=== PATIENT | female | born 2000 | race Caucasian/White ===

== ENCOUNTER 2023-09-12 08:49 | Emergency (ER) | payer OTHER ==
[~2023-09-12] VITALS: Ht 167.6 cm; Wt 72.6 kg
[2023-09-12 09:18] VITALS: BP_SYST 131; PULSE 94; RESP 20; TEMP 97.1; O2SAT 99
[2023-09-12 09:59] LABS: BASOPHILS % (AUTO) 0.5 % (0.0-2.0); EOSINOPHILS # (AUTO) 0.1 K/uL (0.0-0.4); EOSINOPHILS % (AUTO) 1.2 % (0.0-4.0); HEMATOCRIT 46.9 % (36-48); HEMOGLOBIN 15.8 g/dL (12.0-16.0); LYMPHOCYTES # (AUTO) 1.5 K/uL (1.0-5.5); LYMPHOCYTES % (AUTO) 19.6 % (20.5-51.5); MEAN CORPUSCULAR HEMOGLOBIN 30 pg (27-31); MEAN CORPUSCULAR HGB CONC 34 % (32-36); MEAN CORPUSCULAR VOLUME 89 fL (79.0-98.0); MONOCYTES # (AUTO) 0.3 K/uL (0.0-1.0); MONOCYTES % (AUTO) 4.4 % (1.7-9.3); NEUTROPHILS # (AUTO) 5.5 K/uL (1.8-7.7); NEUTROPHILS % (AUTO) 74.3 % (40.0-70.0); PLATELET COUNT (AUTO) 280 K/uL (130-430); RED BLOOD CELL COUNT(AUTO) 5.26 MIL/uL (4.2-6.2); RED CELL DISTRIBUTION WIDTH 13.2 % (9.0-15.0); WHITE BLOOD COUNT (AUTO) 7.4 K/uL (4.8-10.8)
[2023-09-12 10:11] LABS: BILIRUBIN,URINE NEGATIVE (NEGATIVE); BLOOD, URINE NEGATIVE (NEGATIVE); CLARITY/URINE CLEAR (CLEAR); COLOR,URINE YELLOW (YELLOW); GLUCOSE,URINE NEGATIVE (NEGATIVE); KETONES,URINE NEGATIVE (NEGATIVE); LEUKOCYTE ESTERASE ,URINE NEGATIVE (NEGATIVE); NITRITE, URINE NEGATIVE (NEGATIVE); PROTEIN URINE NEGATIVE (NEGATIVE); UROBILINOGEN,URINE 0.2 (0.2-1.0)
[2023-09-12 10:13] LABS: CALCIUM 9.4 mg/dL (8.4-11.0); CREATININE 0.78 mg/dL (0.55-1.30); POTASSIUM 4.1 mmol/L (3.5-5.1)
[2023-09-12] MEDS ORDERED: AUG875 PO (11:37)
[2023-09-12 12:31] VITALS: BP_SYST 131; PULSE 94; RESP 20; TEMP 97.1; O2SAT 99
== END 2023-09-12 12:53 | disposition home or self-care (01) ==
LOC: SED 08:49
DX: I88.0 Nonspecific mesenteric lymphadenitis (principal); R10.31 Right lower quadrant pain; Z79.899 Other long term (current) drug therapy
CPT/HCPCS: 36415; 76376; 80048; 81001; 81003; 81025; 85025; 99284

== ENCOUNTER 2023-10-02 04:23 | Emergency (ER) | payer OTHER ==
[~2023-10-02] VITALS: Ht 165.1 cm; Wt 77.1 kg
[~2023-10-02 04:23] MED LIST: AUG875 PO
[2023-10-02 04:29] VITALS: BP_SYST 114; PULSE 78; RESP 20; TEMP 97.9; O2SAT 98
[2023-10-02] MEDS: KETOROLAC TROMETHAMINE 30 MG VIAL IVP ONE (04:45)
[2023-10-02 05:29] LABS: BILIRUBIN,URINE NEGATIVE (NEGATIVE); CLARITY/URINE CLEAR (CLEAR); COLOR,URINE YELLOW (YELLOW); GLUCOSE,URINE NEGATIVE (NEGATIVE); KETONES,URINE NEGATIVE (NEGATIVE); NITRITE, URINE NEGATIVE (NEGATIVE); PROTEIN URINE NEGATIVE (NEGATIVE); UROBILINOGEN,URINE 0.2 (0.2-1.0)
[2023-10-02 05:44] LABS: BLOOD, URINE TRACE (NEGATIVE); LEUKOCYTE ESTERASE ,URINE NEGATIVE (NEGATIVE)
[2023-10-02 05:44] LABS: BASOPHILS % (AUTO) 0.4 % (0.0-2.0); EOSINOPHILS # (AUTO) 0.3 K/uL (0.0-0.4); EOSINOPHILS % (AUTO) 4.3 % (0.0-4.0); HEMATOCRIT 46.2 % (36-48); HEMOGLOBIN 15.6 g/dL (12.0-16.0); LYMPHOCYTES # (AUTO) 2.5 K/uL (1.0-5.5); LYMPHOCYTES % (AUTO) 32.5 % (20.5-51.5); MEAN CORPUSCULAR HEMOGLOBIN 30 pg (27-31); MEAN CORPUSCULAR HGB CONC 34 % (32-36); MEAN CORPUSCULAR VOLUME 89 fL (79.0-98.0); MONOCYTES # (AUTO) 0.5 K/uL (0.0-1.0); MONOCYTES % (AUTO) 6.7 % (1.7-9.3); NEUTROPHILS # (AUTO) 4.4 K/uL (1.8-7.7); NEUTROPHILS % (AUTO) 56.1 % (40.0-70.0); PLATELET COUNT (AUTO) 297 K/uL (130-430); RED BLOOD CELL COUNT(AUTO) 5.18 MIL/uL (4.2-6.2); RED CELL DISTRIBUTION WIDTH 13.4 % (9.0-15.0); WHITE BLOOD COUNT (AUTO) 7.8 K/uL (4.8-10.8)
[2023-10-02 05:45] LABS: WBC,URINE 0-3 /HPF (0-3)
[2023-10-02 05:46] LABS: BACTERIA,URINE FEW /HPF (None Seen)
[2023-10-02 05:53] LABS: CALCIUM 9.2 mg/dL (8.4-11.0); CREATININE 0.81 mg/dL (0.55-1.30); POTASSIUM 3.6 mmol/L (3.5-5.1)
[2023-10-02 05:58] LABS: ALBUMIN 3.9 g/dL (3.4-4.8); BILIRUBIN,DIRECT 0.1 mg/dL (0.0-0.3); TOTAL BILIRUBIN 0.4 mg/dL (0.0-1.0); TOTAL PROTEIN, SERUM 7.9 g/dL (6.4-8.3)
[2023-10-02 06:18] VITALS: BP_SYST 121; PULSE 79; RESP 18; TEMP 98.2; O2SAT 99
== END 2023-10-02 06:15 | disposition home or self-care (01) ==
LOC: SED 04:23
DX: R10.13 Epigastric pain (principal); J45.909 Unspecified asthma, uncomplicated; Z79.899 Other long term (current) drug therapy
CPT/HCPCS: 36415; 80048; 80076; 81000; 81001; 81015; 81025; 83690; 85025; 99284

== ENCOUNTER 2024-06-09 03:15 | Emergency (ER) | payer OTHER ==
[~2024-06-09] VITALS: Ht 167.6 cm; Wt 79.4 kg
[2024-06-09 03:22] VITALS: BP_SYST 127; PULSE 70; RESP 20; TEMP 98; O2SAT 98
[2024-06-09] MEDS ORDERED: ACETAMINOPHEN 500 MG TABLET PO ONE (04:30)
[2024-06-09] MEDS ORDERED: KETOROLAC TROMETHAMINE 30 MG VIAL IVP ONE (04:30)
== END 2024-06-09 04:50 | disposition home or self-care (01) ==
LOC: SED 03:15
DX: R10.33 Periumbilical pain (principal); J45.909 Unspecified asthma, uncomplicated; Z79.2 Long term (current) use of antibiotics
CPT/HCPCS: 81025; 99282